=== PATIENT | male | born 1990 | race Caucasian/White ===

== ENCOUNTER 2021-06-07 21:50 | Emergency (ER) | payer MEDICAID, OTHER ==
[~2021-06-07] VITALS: Ht 167.6 cm; Wt 123.0 kg
[2021-06-07] MEDS ORDERED: ONDANSETRON HCL 4MG/2ML INJ IV STA (22:00)
[2021-06-07] MEDS ORDERED: SODIUM CHLORIDE 0.9% 1,000 ML IV ONE (22:00)
[2021-06-07] MEDS ORDERED: MORPHINE SULFATE 4 MG/ML CPJ (NOT FOR IM USE) IV STA (22:00)
[2021-06-07] MEDS ORDERED: FAMOTIDINE 20MG/2ML VIAL IV STA (22:00)
[2021-06-07 23:29] LABS: BASOPHILS % 0.1 % (0.0-2.0); HEMATOCRIT. 47.5 % (42.0-52.0); MEAN CORPUSCULAR HEMOGLOBIN 30.2 pg (28.0-32.0); MEAN CORPUSCULAR VOLUME 89.5 fL (80.0-94.0); MONOCYTES % 4.9 % (2.0-8.0); RED BLOOD CELL COUNT 5.31 mill/uL (4.7-6.1); RED CELL DISTRIBUTION WIDTH 13.3 % (11.6-14.6)
[2021-06-07 23:40] LABS: PROTHROMBIN TIME 10.8 sec (9.6-11.0)
[2021-06-08 00:01] LABS: CHLORIDE 109 mEq/L (98-107)
[2021-06-08 00:07] LABS: ETHANOL BLOOD < 10 mg/dL
[2021-06-08] MEDS ORDERED: KETOROLAC 30MG/ML VIAL IV ONE (00:15)
[2021-06-08 04:30] VITALS: BP 145/84
[2021-06-08 05:30] LABS: MEAN PLATELET VOLUME 8.7 fl (7.4-10.4); PLATELET 235 x1000/uL (130-400)
== END 2021-06-08 04:45 | disposition short-term general hospital (02) ==
LOC: ER 21:50 → SUPCPDRO 06-08 07:32
DX: R10.13 Epigastric pain (principal); K80.80 Other cholelithiasis without obstruction; R79.89 Other specified abnormal findings of blood chemistry; R11.10 Vomiting, unspecified; Z20.822 Contact with and (suspected) exposure to COVID-19
CPT/HCPCS: 36415; 76705; 80053; 80320; 83690; 85025; 85610; 87426; 93005; 96361; 96374; 96375; 99291; J2270; J2405; J3490; J7030; G0480